=== PATIENT | female | born 2000 | race Caucasian/White ===

== ENCOUNTER 2018-09-16 22:56 | Emergency (ER) | payer MEDICAID ==
[~2018-09-16] VITALS: Ht 157.5 cm; Wt 72.2 kg
[2018-09-16 23:03] VITALS: Ht 157.5 cm; Wt 72.2 kg
[2018-09-17 00:43] VITALS: BP 112/74
== END 2018-09-17 00:43 | disposition home or self-care (01) ==
LOC: ED 22:56
DX: S61.101A Unspecified open wound of right thumb with damage to nail, initial encounter (principal); W18.49XA Other slipping, tripping and stumbling without falling, initial encounter; Y93.89 Activity, other specified; Y92.89 Other specified places as the place of occurrence of the external cause; Y99.8 Other external cause status
CPT/HCPCS: J2001